=== PATIENT | female | born 2000 | race American Indian/Alaskan Native ===

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

== ENCOUNTER 2019-01-04 09:23 | Emergency (ER) | payer OTHER ==
[2019-01-04 09:23] VITALS: BMI 20.5
[2019-01-04 09:47] VITALS: BP 123/84; PULSE 95; TEMP 98.5; O2SAT 97
--- NOTE | 2019-01-04 10:00 | C.PDOC ---
History Of Present Illness 18-year-old female presents to the ED for evaluation of right deltoid pain for 6 weeks. Patient has been applying hot packs to the area and taking hot showers, which has been making the area worse. Patient is currently about to graduate high school. Patient denies extremity numbness/weakness. Time Seen by Provider: 01/04/19 09:51 Chief Complaint (Nursing): Upper Extremity Problem/Injury History Per: Patient History/Exam Limitations: no limitations Current Symptoms Are (Timing): Still Present Quality: "Pain" Additional History Per: Patient Past Medical History Reviewed: Historical Data, Nursing Documentation, Vital Signs Vital Signs: Last Vital Signs Temp 98.5 F 01/04/19 09:46 Pulse 95 H 01/04/19 09:46 Resp BP 123/84 01/04/19 09:46 Pulse Ox 97 01/04/19 09:46 - Medical History PMH: Asthma, HTN, Migraine, Chronic Kidney Disease Surgical History: Tonsillectomy - [facility] Procedures INJECT/INFUSE ELECTROLYT (05/07/15) INJECT/INFUSE NEC (03/29/15) Family History: States: Unknown Family Hx - Social History Hx Tobacco Use: No Hx Alcohol Use: No Hx Substance Use: No - Immunization History Hx Tetanus Toxoid Vaccination: No Hx Influenza Vaccination: Yes Hx Pneumococcal Vaccination: No Review Of Systems Musculoskeletal: Positive for: Other (right deltoid discomfort ) Skin: Negative for: Rash, Lesions, Jaundice, Bruising Neurological: Negative for: Weakness, Numbness Physical Exam - Physical Exam Appears: Non-toxic, No Acute Distress, Other (Black female ) Skin: Normal Color, Warm, Dry, No Rash Head: Atraumatic, Normacephalic Eye(s): bilateral: Normal Inspection Oral Mucosa: Moist Neck: Supple Chest: Symmetrical, No Deformity, No Tenderness Extremity: Tenderness (right deltoid tenderness ), Other (painless range of motion of right shoulder ) Neurological/Psych: Oriented x3, Normal Speech, Normal Cognition, Normal Sensation ED Course And Treatment O2 Sat by Pulse Oximetry: 97 - Other Rad shoulder xr X-Ray: Viewed By Me, Read By Radiologist Interpretation: PROCEDURE: Radiographs of the Right Shoulder, three views. HISTORY: R deltoid tender. COMPARISON: No prior. FINDINGS: BONES: No acute displaced fracture. The distal clavicle and underlying ribs appear intact. JOINTS: No acute dislocation. SOFT TISSUES: Soft tissues appear unremarkable. No evidence of radiopaque foreign body. IMPRESSION: No acute displaced fracture or dislocation evident. If symptoms persist or if there is continued clinical concern, x-ray follow-up in 7-10 days should be considered. Medical Decision Making Medical Decision Making: R deltoid strain/sprain no injury no inner shoulder injury worse with persistent heat therapies Tylenol (no NSAIDS in renal transplant) ice Disposition Doctor Will See Patient In The: Office Counseled Patient/Family Regarding: Studies Performed, Diagnosis - Disposition Referrals: Maame Levy MD [Staff Provider] - Disposition: HOME/ ROUTINE Disposition Time: 10:00 Condition: GOOD Additional Instructions: continue ice packs to R deltoid area 1/2 hour per hour NO FURTHER HEAT NOR MASSAGE TREATMENTS OF ANY KIND NO HOT SHOWERS Tylenol 1000 mg every 6 hours as needed outpatient f/u with Ortho Dr. Levy Call for opt appt. Instructions: Shoulder Sprain, Muscle Strain Forms: [facility] (Setswana) - Clinical Impression Clinical Impression: Muscle strain - Scribe Statement The provider has reviewed the documentation as recorded by the Scribe (Cece Aguillon) Provider Attestation: All medical record entries made by the Scribe were at my direction and personally dictated by me. I have reviewed the chart and agree that the record accurately reflects my personal performance of the history, physical exam, medical decision making, and the department course for this patient. I have also personally directed, reviewed, and agree with the discharge instructions and disposition.
[2019-01-04 10:18] VITALS: RESP 18
--- NOTE | 2019-01-04 11:04 | RAD ---
PROCEDURE: Radiographs of the Right Shoulder, three views HISTORY: R deltoid tender COMPARISON: No prior. FINDINGS: BONES: No acute displaced fracture. The distal clavicle and underlying ribs appear intact. JOINTS: No acute dislocation. SOFT TISSUES: Soft tissues appear unremarkable. No evidence of radiopaque foreign body. IMPRESSION: No acute displaced fracture or dislocation evident. If symptoms persist or if there is continued clinical concern, x-ray follow-up in 7-10 days should be considered.
== END 2019-01-04 10:18 | disposition home or self-care (01) ==
LOC: C.ER 09:23
DX: S46.911A Strain of unspecified muscle, fascia and tendon at shoulder and upper arm level, right arm, initial encounter (principal); X58.XXXA Exposure to other specified factors, initial encounter; I12.9 Hypertensive chronic kidney disease with stage 1 through stage 4 chronic kidney disease, or unspecified chronic kidney disease; N18.9 Chronic kidney disease, unspecified